=== PATIENT | male | born 1950 | race Caucasian/White ===

== ENCOUNTER 2020-08-13 19:46 | Inpatient (IN) | payer MEDICARE, SELFPAY ==
[2020-08-13] MEDS ORDERED: Ondansetron ODT 4 MG TAB SL PRN (23:00)
[2020-08-13] MEDS ORDERED: Ondansetron PF 4 MG/2 ML Vial IVP PRN (23:00)
[2020-08-14] MEDS ORDERED: Acetaminophen 650 MG Suppository PR PRN (00:30)
[2020-08-14] MEDS ORDERED: Acetaminophen 325 MG TAB PO PRN (00:30)
[2020-08-14 00:44] LABS: Troponin I 0.084 ng/mL (< 0.028)
[2020-08-14] MEDS ORDERED: Diazepam 5 MG TAB PO PRN (03:12)
[2020-08-14] MEDS ORDERED: Thiamine HCl 200 MG/2 ML VIAL IM SCH (03:15)
[2020-08-14] MEDS ORDERED: Diazepam 5 MG TAB PO SCH (03:15)
[2020-08-14 04:20] LABS: Hemoglobin 15.4 g/dL (14.0-18.0); Mean Corpuscular HGB CONC 33.8 g/dL (32.0-36.0); Mean Corpuscular Hemoglobin 32.7 pg (27.0-31.0); Mean Corpuscular Volume 96.7 fL (78.0-98.0); Mean Platelet Volume 9.3 fL (7.4-10.4); Platelet Count 186 thou/uL (130-400); RBC Distribution Width 13.3 % (11.5-14.5); White Blood Cell (WBC) Count 5.5 thou/uL (4.8-10.8)
[2020-08-14 04:25] LABS: Anion Gap 14 mmol/L (10-20); BUN (Urea Nitrogen) 55 mg/dL (8.4-25.7); Calc. Creatinine Clearance 52 mL/min (70-130); Calcium 8.3 mg/dL (7.8-10.44); Carbon Dioxide 24 mmol/L (23-31); Chloride 106 mmol/L (98-107); Glucose 142 mg/dL (80-115); Potassium 4.3 mmol/L (3.5-5.1); Sodium 140 mmol/L (136-145); Troponin I 0.067 ng/mL (< 0.028)
[2020-08-14 04:26] LABS: ALT (SGPT) 68 U/L (8-55); AST (SGOT) 109 U/L (5-34); Albumin 2.9 g/dL (3.4-4.8); Alkaline Phosphatase 56 U/L (40-110); Anion Gap 14 mmol/L (10-20); BUN (Urea Nitrogen) 61 mg/dL (8.4-25.7); Bilirubin, Total 0.7 mg/dL (0.2-1.2); Calc. Creatinine Clearance 51 mL/min (70-130); Calcium 8.2 mg/dL (7.8-10.44); Carbon Dioxide 24 mmol/L (23-31); Chloride 106 mmol/L (98-107); Globulin 3.5 g/dL (2.4-3.5); Glucose 144 mg/dL (80-115); Potassium 4.2 mmol/L (3.5-5.1); Protein, Total 6.4 g/dL (5.8-8.1); Sodium 140 mmol/L (136-145)
[2020-08-14 05:13] LABS: Band 17 % (5-11); Eosinophils 1 % (0-10); Lymphocytes 4 % (21-51); MDiff Complete? YES; Monocytes 1 % (0-10); Neutrophil 75 % (42-75); Reactive Lymphocytes 2 % (0-10)
[2020-08-14] MEDS ORDERED: cefTRIAXone\\ROCEPHIN 1 GM in Sodium Chloride 0.9% 100 ML IVPB SCH (06:00)
[2020-08-14] MEDS ORDERED: Azithromycin 500 MG in Sodium Chloride 0.9% 250 ML 250 ML IVPB SCH (06:00)
[2020-08-14] MEDS: Enoxaparin Sodium 40 MG/0.4 ML SYRINGE SC SCH (08:33)
[2020-08-14] MEDS: Folic Acid 1 MG TAB PO SCH (08:33)
[2020-08-14] MEDS: Ascorbic Acid 500 mg Chewable Tablet PO SCH (08:33)
[2020-08-14] MEDS: Multivitamin W/ Minerals 1 TAB PO SCH (08:33)
[2020-08-14] MEDS: Zinc Sulfate 220 MG CAP PO SCH (08:33)
[2020-08-14] MEDS: Cholecalciferol (Vitamin D3) 400 UNITS TAB PO SCH (08:33)
[2020-08-14] MEDS ORDERED: Dexamethasone 4 mg/ml Vial SLOW IVP SCH (09:00)
[2020-08-14] MEDS: methylPREDNISolone Sod Succ/PF 110 MG in Sodium Chloride 0.9% 250 ML 250 ML IVPB SCH (11:09)
[2020-08-14] MEDS: Ivermectin 3 MG TAB PO SCH (11:10)
[2020-08-14] MEDS: Sodium Chloride 0.45% 1,000 ML IV SCH ×2 (11:12→21:45)
[2020-08-14 17:12] LABS: Bilirubin Negative (Negative); Blood, Urine Small (Negative); Glucose, Urine (Dipstick) Negative (Negative); Ketone, Urine Negative (Negative); Leukocyte Negative (Negative); Nitrite Negative (Negative); Protein, Urine (Dipstick) 30 mg/dL (Neg-Trace); Specific Gravity, Urine 1.025 (1.005-1.030); pH, Urine 5.5 (5.0-9.0)
[2020-08-14 17:17] LABS: Clarity Hazy (Clear)
[2020-08-14 17:19] LABS: Bacteria/HPF None Seen HPF (None Seen); RBC/HPF 0-3 HPF (0-3); Squamous Epithelial 0-3 HPF (0-3); WBC/HPF 0-3 HPF (0-3)
[2020-08-14 17:23] LABS: Urine Culture Reflex No No
[2020-08-14 17:36] LABS: Amphetamine Not Detected (NotDetected); Barbiturates Screen Not Detected (NotDetected); Benzodiazepine Screen Not Detected (NotDetected); Cocaine Metabolite Screen Not Detected (NotDetected); Medtox Control Line Valid? VALID (VALID); Medtox Reader # READER 4; Methadone Not Detected (NotDetected); Methamphetamine Not Detected (NotDetected); Opiate Screen Not Detected (NotDetected); Oxycodone Screen Not Detected (NotDetected); Phencyclidine (PCP) Not Detected (NotDetected); THC/Cannabinoid Screen Not Detected (NotDetected); Tricyclic Screen Not Detected (NotDetected)
[2020-08-14] MEDS: Colchicine 0.6 MG TAB PO SCH (21:45)
[2020-08-15] MEDS ORDERED: Diazepam 5 MG TAB PO PRN (04:00)
[2020-08-15 04:52] LABS: ALT (SGPT) 59 U/L (8-55); AST (SGOT) 83 U/L (5-34); Albumin 2.7 g/dL (3.4-4.8); Alkaline Phosphatase 57 U/L (40-110); Anion Gap 15 mmol/L (10-20); BUN (Urea Nitrogen) 76 mg/dL (8.4-25.7); Bilirubin, Total 0.8 mg/dL (0.2-1.2); Calc. Creatinine Clearance 58 mL/min (70-130); Calcium 8.1 mg/dL (7.8-10.44); Carbon Dioxide 22 mmol/L (23-31); Chloride 102 mmol/L (98-107); Globulin 3.4 g/dL (2.4-3.5); Glucose 149 mg/dL (80-115); Potassium 3.8 mmol/L (3.5-5.1); Protein, Total 6.1 g/dL (5.8-8.1); Sodium 135 mmol/L (136-145)
[2020-08-15 05:07] LABS: Band 6 % (5-11); Hemoglobin 14.6 g/dL (14.0-18.0); Lymphocytes 7 % (21-51); MDiff Complete? YES; Mean Corpuscular HGB CONC 31.8 g/dL (32.0-36.0); Mean Corpuscular Hemoglobin 30.1 pg (27.0-31.0); Mean Corpuscular Volume 94.6 fL (78.0-98.0); Mean Platelet Volume 9.7 fL (7.4-10.4); Monocytes 1 % (0-10); Neutrophil 86 % (42-75); Platelet Count 236 thou/uL (130-400); Platelet Morphology Comment Appears Adequate; RBC Morphology Normal; Red Blood Cell (RBC) Count 4.86 mill/uL (4.70-6.10); White Blood Cell (WBC) Count 9.6 thou/uL (4.8-10.8)
[2020-08-15 06:04] VITALS: BMI 36.6
[2020-08-15] MEDS: Ascorbic Acid 500 mg Chewable Tablet PO SCH (07:53)
[2020-08-15] MEDS: Zinc Sulfate 220 MG CAP PO SCH (07:53)
[2020-08-15] MEDS: Colchicine 0.6 MG TAB PO SCH ×2 (07:54→20:59)
[2020-08-15] MEDS: Magnesium Oxide 400 MG TAB PO SCH (07:54)
[2020-08-15] MEDS: Thiamine 100 MG TAB PO SCH (07:54)
[2020-08-15] MEDS: Folic Acid 1 MG TAB PO SCH (07:54)
[2020-08-15] MEDS: Multivitamin W/ Minerals 1 TAB PO SCH (07:54)
[2020-08-15] MEDS: Cholecalciferol (Vitamin D3) 400 UNITS TAB PO SCH (07:54)
[2020-08-15] MEDS: Enoxaparin Sodium 40 MG/0.4 ML SYRINGE SC SCH (07:54)
[2020-08-15] MEDS: Ivermectin 3 MG TAB PO SCH (07:55)
[2020-08-15] MEDS ORDERED: methylPREDNISolone Sod Succ/PF 110 MG in Sodium Chloride 0.9% 250 ML 250 ML IVPB SCH (09:00)
[2020-08-15] MEDS: methylPREDNISolone Sod Succ/PF 110 MG in Sodium Chloride 0.9% 250 ML 250 ML IVPB SCH (11:05)
[2020-08-15] MEDS: Sodium Chloride 0.45% 1,000 ML IV SCH (11:05)
[2020-08-16] MEDS: Sodium Chloride 0.45% 1,000 ML IV SCH ×2 (01:38→16:02)
[2020-08-16 04:19] LABS: #Basophils 0.1 thou/uL (0.0-0.2); #Lymphocytes 0.3 thou/uL (1.20-3.40); #Monocytes 0.3 thou/uL (0.11-0.59); %Eosinophils 0.1 % (0.0-10.0); %Lymphocytes 4.6 % (21.0-51.0); %Monocytes 4.9 % (0.0-10.0); %Neutrophils 89.4 % (42.0-75.0); Hemoglobin 16.1 g/dL (14.0-18.0); Mean Corpuscular HGB CONC 33.2 g/dL (32.0-36.0); Mean Corpuscular Hemoglobin 31.5 pg (27.0-31.0); Mean Corpuscular Volume 94.8 fL (78.0-98.0); Mean Platelet Volume 9.9 fL (7.4-10.4); Platelet Count 238 thou/uL (130-400); RBC Distribution Width 13.1 % (11.5-14.5); White Blood Cell (WBC) Count 6.7 thou/uL (4.8-10.8)
[2020-08-16 04:27] LABS: Anion Gap 16 mmol/L (10-20); BUN (Urea Nitrogen) 68 mg/dL (8.4-25.7); Calc. Creatinine Clearance 72 mL/min (70-130); Calcium 7.9 mg/dL (7.8-10.44); Carbon Dioxide 20 mmol/L (23-31); Chloride 103 mmol/L (98-107); Glucose 144 mg/dL (80-115); Potassium 3.9 mmol/L (3.5-5.1); Sodium 135 mmol/L (136-145)
[2020-08-16] MEDS: Ascorbic Acid 500 mg Chewable Tablet PO SCH (08:22)
[2020-08-16] MEDS: Thiamine 100 MG TAB PO SCH (08:22)
[2020-08-16] MEDS: Colchicine 0.6 MG TAB PO SCH ×2 (08:22→20:03)
[2020-08-16] MEDS: Enoxaparin Sodium 40 MG/0.4 ML SYRINGE SC SCH (08:22)
[2020-08-16] MEDS: Multivitamin W/ Minerals 1 TAB PO SCH (08:22)
[2020-08-16] MEDS: Magnesium Oxide 400 MG TAB PO SCH (08:22)
[2020-08-16] MEDS: Cholecalciferol (Vitamin D3) 400 UNITS TAB PO SCH (08:22)
[2020-08-16] MEDS: Zinc Sulfate 220 MG CAP PO SCH (08:22)
[2020-08-16] MEDS: Folic Acid 1 MG TAB PO SCH (08:22)
[2020-08-16] MEDS: Ivermectin 3 MG TAB PO SCH (08:23)
[2020-08-16] MEDS: methylPREDNISolone Sod Succ/PF 110 MG in Sodium Chloride 0.9% 250 ML 250 ML IVPB SCH (11:48)
[2020-08-17] MEDS: Zinc Sulfate 220 MG CAP PO SCH (08:24)
[2020-08-17] MEDS: Multivitamin W/ Minerals 1 TAB PO SCH (08:24)
[2020-08-17] MEDS: Magnesium Oxide 400 MG TAB PO SCH (08:24)
[2020-08-17] MEDS: Colchicine 0.6 MG TAB PO SCH ×2 (08:24→20:40)
[2020-08-17] MEDS: Folic Acid 1 MG TAB PO SCH (08:24)
[2020-08-17] MEDS: Cholecalciferol (Vitamin D3) 400 UNITS TAB PO SCH (08:24)
[2020-08-17] MEDS: Thiamine 100 MG TAB PO SCH (08:24)
[2020-08-17] MEDS: Enoxaparin Sodium 40 MG/0.4 ML SYRINGE SC SCH (08:25)
[2020-08-17] MEDS: Ascorbic Acid 500 mg Chewable Tablet PO SCH (08:25)
[2020-08-17] MEDS: Ivermectin 3 MG TAB PO SCH (08:27)
[2020-08-17] MEDS: methylPREDNISolone Sod Succ/PF 110 MG in Sodium Chloride 0.9% 250 ML 250 ML IVPB SCH (11:29)
[2020-08-18] MEDS: Zinc Sulfate 220 MG CAP PO SCH (09:33)
[2020-08-18] MEDS: Magnesium Oxide 400 MG TAB PO SCH (09:33)
[2020-08-18] MEDS: Multivitamin W/ Minerals 1 TAB PO SCH (09:33)
[2020-08-18] MEDS: Ascorbic Acid 500 mg Chewable Tablet PO SCH (09:33)
[2020-08-18] MEDS: Thiamine 100 MG TAB PO SCH (09:33)
[2020-08-18] MEDS: Enoxaparin Sodium 40 MG/0.4 ML SYRINGE SC SCH (09:33)
[2020-08-18] MEDS: Colchicine 0.6 MG TAB PO SCH ×2 (09:33→20:39)
[2020-08-18] MEDS: Cholecalciferol (Vitamin D3) 400 UNITS TAB PO SCH (09:33)
[2020-08-18] MEDS: Folic Acid 1 MG TAB PO SCH (09:33)
[2020-08-18] MEDS: methylPREDNISolone Sod Succ/PF 110 MG in Sodium Chloride 0.9% 250 ML 250 ML IVPB SCH (09:35)
[2020-08-18] MEDS: Ivermectin 3 MG TAB PO SCH ×2 (09:35→10:58)
[2020-08-18 09:45] LABS: Anion Gap 14 mmol/L (10-20); BUN (Urea Nitrogen) 39 mg/dL (8.4-25.7); Calc. Creatinine Clearance 81 mL/min (70-130); Calcium 8.2 mg/dL (7.8-10.44); Carbon Dioxide 25 mmol/L (23-31); Chloride 106 mmol/L (98-107); Glucose 150 mg/dL (80-115); Potassium 4.9 mmol/L (3.5-5.1); Sodium 140 mmol/L (136-145)
[2020-08-18] MEDS ORDERED: hydrALAZINE 20 MG/ML VIAL SLOW IVP PRN (17:34)
[2020-08-18] MEDS ORDERED: cloNIDine 0.1 MG TAB PO SCH (17:45)
[2020-08-18] MEDS: Lisinopril 5 MG TAB PO SCH (20:39)
[2020-08-19] MEDS: Lisinopril 5 MG TAB PO SCH ×2 (08:11→20:05)
[2020-08-19] MEDS: Ascorbic Acid 500 mg Chewable Tablet PO SCH (08:12)
[2020-08-19] MEDS: Zinc Sulfate 220 MG CAP PO SCH (08:12)
[2020-08-19] MEDS: Folic Acid 1 MG TAB PO SCH (08:12)
[2020-08-19] MEDS: Multivitamin W/ Minerals 1 TAB PO SCH (08:12)
[2020-08-19] MEDS: Magnesium Oxide 400 MG TAB PO SCH (08:12)
[2020-08-19] MEDS: Colchicine 0.6 MG TAB PO SCH ×2 (08:13→20:04)
[2020-08-19] MEDS: Cholecalciferol (Vitamin D3) 400 UNITS TAB PO SCH (08:13)
[2020-08-19] MEDS: Enoxaparin Sodium 40 MG/0.4 ML SYRINGE SC SCH (08:13)
[2020-08-19] MEDS: Thiamine 100 MG TAB PO SCH (08:13)
[2020-08-19] MEDS: Ivermectin 3 MG TAB PO SCH (08:16)
[2020-08-19] MEDS: methylPREDNISolone Sod Succ/PF 110 MG in Sodium Chloride 0.9% 250 ML 250 ML IVPB SCH (08:21)
[2020-08-19] MEDS: Dexamethasone 4 MG TAB PO SCH ×2 (11:00→21:06)
[2020-08-20] MEDS ORDERED: Lisinopril 5 MG TAB PO SCH (07:42)
[2020-08-20] MEDS ORDERED: Atorvastatin Calcium 10 MG TAB PO SCH (09:00)
[2020-08-20] MEDS: Cholecalciferol (Vitamin D3) 400 UNITS TAB PO SCH (09:13)
[2020-08-20] MEDS: Thiamine 100 MG TAB PO SCH (09:13)
[2020-08-20] MEDS: Magnesium Oxide 400 MG TAB PO SCH (09:13)
[2020-08-20] MEDS: Multivitamin W/ Minerals 1 TAB PO SCH (09:13)
[2020-08-20] MEDS: Lisinopril 10 MG TAB PO SCH ×2 (09:13→20:12)
[2020-08-20] MEDS: Dexamethasone 4 MG TAB PO SCH ×2 (09:13→20:10)
[2020-08-20] MEDS: Zinc Sulfate 220 MG CAP PO SCH (09:13)
[2020-08-20] MEDS: Colchicine 0.6 MG TAB PO SCH ×2 (09:13→20:10)
[2020-08-20] MEDS: Ascorbic Acid 500 mg Chewable Tablet PO SCH (09:13)
[2020-08-20] MEDS: Folic Acid 1 MG TAB PO SCH (09:13)
[2020-08-20] MEDS: Enoxaparin Sodium 40 MG/0.4 ML SYRINGE SC SCH (09:14)
[2020-08-20] MEDS: Ivermectin 3 MG TAB PO SCH (09:16)
[2020-08-20 20:19] VITALS: BP 146/85; TEMP 97.7
== END 2020-08-20 21:25 | disposition home or self-care (01) | DRG 177 ==
LOC: ERS 19:46 → IMCU/EMU 21:10 → T4-A 08-19 12:31
PROVIDERS: ADMIT Student in an Organized Health Care Education/Training Program; ATTEND Internal Medicine
PROC: 8E0ZXY6 Isolation (ICD-10-PCS; principal; 2020-08-13)
PROC: HZ2ZZZZ Detoxification Services for Substance Abuse Treatment (ICD-10-PCS; 2020-08-14)
DX: U07.1 COVID-19 (principal); J96.01 Acute respiratory failure with hypoxia; J12.82 Pneumonia due to coronavirus disease 2019; G93.41 Metabolic encephalopathy; I24.8 Other forms of acute ischemic heart disease; F10.239 Alcohol dependence with withdrawal, unspecified; N18.30 Chronic kidney disease, stage 3 unspecified; R74.8 Abnormal levels of other serum enzymes; E66.9 Obesity, unspecified; R33.9 Retention of urine, unspecified; Z68.36 Body mass index [BMI] 36.0-36.9, adult
CPT/HCPCS: 36415; 36416; 80048; 80053; 80306; 81001; 82728; 83605; 83615; 85025; 85379; 86140; 93005; J0360; J1100; J1650; J2930; J3411; J3475; J3490; J7050; J8540

== ENCOUNTER 2023-11-26 15:50 | Inpatient (IN) | payer MEDICARE ==
[2023-11-26] MEDS ORDERED: Ondansetron ODT 4 MG TAB SL PRN (18:00)
[2023-11-26] MEDS ORDERED: Ondansetron PF 4 MG/2 ML Vial IVP PRN (18:00)
[2023-11-26] MEDS ORDERED: Acetaminophen 325 MG TAB PO PRN (18:00)
[2023-11-26 18:23] VITALS: BMI 33.4
[2023-11-26] MEDS: Furosemide 40 MG (4 mL) VIAL SLOW IVP SCH ×2 (21:50→21:51)
[2023-11-26] MEDS: Tamsulosin HCl 0.4 MG CAP PO SCH (21:50)
[2023-11-27 02:28] LABS: #Basophils Less than 0.03 10x3/uL (0.0-0.2); %Basophils 0.4 % (0.0-1.0); %Lymphocytes 19.8 % (21.0-51.0); %Monocytes 12.1 % (0.0-10.0); %Neutrophils 65.5 % (42.0-75.0); Hematocrit 42.3 % (42.0-52.0); Hemoglobin 14.4 g/dL (14.0-18.0); Mean Corpuscular Hemoglobin 31.6 pg (27.0-31.0); Mean Platelet Volume 11.1 fL (7.4-10.4); Platelet Count 170 10x3/uL (130-400); RBC Distribution Width 14.6 % (11.5-14.5); Red Blood Cell (RBC) Count 4.55 mill/uL (4.70-6.10)
[2023-11-27 02:50] LABS: A1c 159.826 g/dL; Hb (HGBA1c) 4262.0099 umol/L; Hemoglobin A1c 5.6 % (4.0-6.0)
[2023-11-27 02:53] LABS: Anion Gap 15 mmol/L (10-20); BUN (Urea Nitrogen) 13 mg/dL (8.4-25.7); Calc. Creatinine Clearance 90 mL/min (70-130); Calcium 9.3 mg/dL (7.8-10.44); Carbon Dioxide 28 mmol/L (23-31); Cardiac Risk 4.3 (Less than 4.5); Chloride 103 mmol/L (98-107); Cholesterol 145 mg/dl (< 200 Desired); Estimated GFR 80; Glucose 97 mg/dL (83-110); HDL Cholesterol 34 mg/dL (>60 Neg Risk); LDL Cholesterol, Calculated 99 mg/dL; Potassium 3.5 mmol/L (3.5-5.1); Sodium 142 mmol/L (136-145); Triglycerides 60 mg/dL (Less than 150); Troponin I 0.055 ng/mL (< 0.028)
[2023-11-27] MEDS: Furosemide 100 MG (10 mL) VIAL SLOW IVP SCH (05:27)
[2023-11-27] MEDS: Aspirin 81 mg Enteric Coated Tablet PO SCH (08:18)
[2023-11-27] MEDS: Enoxaparin 40 MG (0.4 mL) SYRINGE SC SCH (08:18)
[2023-11-27] MEDS: Tamsulosin HCl 0.4 MG CAP PO SCH (08:19)
[2023-11-27] MEDS: Losartan 25 MG TAB PO SCH (08:19)
[2023-11-28] MEDS: Empagliflozin 10 MG TAB PO SCH (13:33)
[2023-11-28] MEDS ORDERED: Communication Order-Pharmacy FS SCH (16:30)
[2023-11-28] MEDS: Potassium Chloride 20 MEQ TAB PO SCH (17:23)
[2023-11-28] MEDS: Sacubitril 24MG/Valsartan 26 MG TAB PO SCH (20:10)
[2023-11-28] MEDS: Milk Of Magnesia 30 ML UDCUP PO SCH (20:16)
[2023-11-29] MEDS ORDERED: fentaNYL 50 mcg/mL 1 mL Vial ONE (06:17)
[2023-11-29] MEDS ORDERED: Midazolam HCl 2 mg/2 ml Vial ONE (06:17)
[2023-11-29] MEDS ORDERED: Heparin 10,000 UNITS/ 10 ML VIAL ONE (06:18)
[2023-11-29] MEDS ORDERED: Nitroglycerin 50 MG/250 ML BOT 0 ML ONE (06:18)
[2023-11-29] MEDS: Empagliflozin 10 MG TAB PO SCH (08:35)
[2023-11-29] MEDS ORDERED: Sodium Chloride 0.9% 200 ML IV PRN (08:50)
[2023-11-29] MEDS ORDERED: Acetaminophen/Codeine 30-300mg Tablet PO PRN ×2 (08:50)
[2023-11-29] MEDS ORDERED: Nitroglycerin 0.4 MG TAB (25 Tab Bottle) SL PRN (08:50)
[2023-11-29] MEDS ORDERED: Empagliflozin 10 MG TAB PO SCH (09:00)
[2023-11-29 09:56] LABS: Anion Gap 14 mmol/L (10-20); BUN (Urea Nitrogen) 21 mg/dL (8.4-25.7); Calc. Creatinine Clearance 73 mL/min (70-130); Calcium 9.4 mg/dL (7.8-10.44); Carbon Dioxide 34 mmol/L (23-31); Chloride 97 mmol/L (98-107); Estimated GFR 69; Glucose 94 mg/dL (83-110); Potassium 3.7 mmol/L (3.5-5.1); Sodium 141 mmol/L (136-145)
[2023-11-29] MEDS ORDERED: Iopamidol 370 76% 100 ML VIAL ONE (11:19)
[2023-11-29] MEDS: Spironolactone 25 MG TAB PO SCH (14:42)
[2023-11-29] MEDS: Sacubitril 24MG/Valsartan 26 MG TAB PO SCH (21:48)
[2023-11-30] MEDS ORDERED: Aspirin 81 mg Enteric Coated Tablet PO SCH (06:53)
[2023-11-30] MEDS: Aspirin 325 mg Enteric Coated Tablet PO SCH (10:18)
[2023-11-30] MEDS: Carvedilol 3.125 MG TAB PO SCH (11:09)
[2023-11-30] MEDS: Spironolactone 25 MG TAB PO SCH (11:09)
[2023-11-30] MEDS: Sodium Chloride 0.9% 1,000 ML IV SCH (11:18)
[2023-11-30] MEDS: Sodium Chloride 0.9% 500 ML IV SCH (15:50)
[2023-12-01 05:07] LABS: Anion Gap 12 mmol/L (10-20); BUN (Urea Nitrogen) 23 mg/dL (8.4-25.7); Calc. Creatinine Clearance 73 mL/min (70-130); Calcium 9.3 mg/dL (7.8-10.44); Carbon Dioxide 30 mmol/L (23-31); Chloride 102 mmol/L (98-107); Estimated GFR 72; Glucose 90 mg/dL (83-110); Sodium 140 mmol/L (136-145)
[2023-12-01] MEDS ORDERED: Furosemide 20 MG TAB PO PRN (09:00)
[2023-12-01 16:57] VITALS: BP 111/75; TEMP 97.7
== END 2023-12-01 17:45 | disposition home or self-care (01) | DRG 280 ==
LOC: 2NO 17:53
PROVIDERS: ADMIT Family Medicine; ATTEND Internal Medicine
PROC: 4A023N7 Measurement of Cardiac Sampling and Pressure, Left Heart, Percutaneous Approach (ICD-10-PCS; principal; 2023-11-29)
PROC: B2111ZZ Fluoroscopy of Multiple Coronary Arteries using Low Osmolar Contrast (ICD-10-PCS; 2023-11-29)
PROC: B2151ZZ Fluoroscopy of Left Heart using Low Osmolar Contrast (ICD-10-PCS; 2023-11-29)
DX: I11.0 Hypertensive heart disease with heart failure (principal); I50.23 Acute on chronic systolic (congestive) heart failure; I21.A1 Myocardial infarction type 2; F10.10 Alcohol abuse, uncomplicated; I34.0 Nonrheumatic mitral (valve) insufficiency; I42.8 Other cardiomyopathies; Z79.82 Long term (current) use of aspirin; Z79.899 Other long term (current) drug therapy
CPT/HCPCS: 36415; 80048; 80061; 83036; 83880; 84443; 84484; 85025; 93306; 93458; 93798; 99152; C1769; C1887; J1644; J1650; J1940; J2250; J3010; J7030; Q9967